=== PATIENT | female | born 1955 | race Caucasian/White ===

== ENCOUNTER 2018-01-28 20:40 | Emergency (ER) | payer BC ==
[~2018-01-28] VITALS: Ht 160 cm; Wt 88.6 kg
[~2018-01-28 20:40] MED LIST: AMOX TR-K CLV1 EAC4 PO; CALCIUM + D3 E1 EACH PO; FUROSEMIDE20 MG PO; HYDROCHLOROTHIA25 MG PO; LETROZOLE2.5 MG PO; LEVOTHYROXINE50 MCG PO; LOVENOX40 MG/0.4 SC; MOTRIN600 MG PO; MOTRIN800 MG PO; NASACORT10.8 ML BOTH NARES; OMEPRAZOLE20 M2 PO; OMEPRAZOLE40 M1 PO; OXYCODONE HCL5 MG PO; PERCOCET 5/31 TABLET PO; PRILOSEC20 MG PO; PROGESTERONE100 MG PO; PROTONIX40 MG PO; PriLOSEC PO; SYNTHROID50 MCG PO; VALTREX50 MG/ML PO; VICODIN 5-3001 EACH PO; Vicodin,Lortab 5/500 PO; ZANTAC150 MG PO; ZOFRAN4 MG PO
[2018-01-28 21:22] LABS: HEMATOCRIT 40.9 % (36.0-46.0); HEMOGLOBIN 14.7 G/DL (11.9-15.5); MCH 30.5 PG (29.0-34.0); MCHC 35.9 G/DL (30.0-36.0); MCV 84.9 FL (83-99); PLATELET COUNT 267 K/uL (156-360); RBC DIS.WIDTH-CV 13.1 % (11.8-14.6); RBC DIS.WIDTH-SD 40.2 % (39-53); RED BLOOD COUNT 4.82 M/uL (3.80-5.20); WHITE BLOOD COUNT 10.7 K/uL (4.1-10.2)
[2018-01-28 21:23] LABS: CARBON DIOXIDE (BICARBONATE) 28.2 MEQ/L (20-31)
[2018-01-28 21:39] LABS: ALBUMIN 4.1 g/dL (3.2-4.8); CHLORIDE 93 mEq/L (99-109); POTASSIUM 3.4 mEq/L (3.7-5.4); SODIUM 131 mEq/L (136-147)
[2018-01-28 21:42] LABS: TOTAL PROTEIN 7.8 g/dL (6.4-8.3)
[2018-01-28 21:44] LABS: TOTAL BILIRUBIN 0.7 mg/dL (0.0-1.0)
[2018-01-28 21:45] LABS: ALKALINE PHOSPHATASE 204 IU/L (3-129); CREATININE 1.3 mg/dL (0.6-1.3); GFR ESTIMATE (CALCULATED) 44 mL/min/
[2018-01-28 21:46] LABS: UREA NITROGEN (BUN) 14 mg/dL (9-23)
[2018-01-28 21:47] LABS: AST (GOT) 30 IU/L (2-34)
[2018-01-28 21:48] LABS: ALT (GPT) 75 IU/L (3-49)
[2018-01-28 22:06] LABS: GLUCOSE 642 mg/dL (70-99)
[2018-01-28 22:07] LABS: APPEARANCE CLEAR ((CLEAR)); BILIRUBIN NEGATIVE; BLOOD NEGATIVE; COLOR STRAW ((YELLOW)); GLUCOSE (STRIP) >=500; KETONES 5; LEUKOCYTES NEGATIVE; NITRITE NEGATIVE; PROTEIN (STRIP) NEGATIVE; UCUL ADDED? NO; UROBILINOGEN 0.2 MG/DL (0.2-1.0)
[2018-01-28 22:13] LABS: CHLORIDE 94 mEq/L (99-109); POTASSIUM 3.7 mEq/L (3.7-5.4); SODIUM 132 mEq/L (136-147)
[2018-01-28 22:19] LABS: CREATININE 1.3 mg/dL (0.6-1.3); GFR ESTIMATE (CALCULATED) 44 mL/min/
[2018-01-28 22:20] LABS: UREA NITROGEN (BUN) 15 mg/dL (9-23)
[2018-01-28 22:27] LABS: GLUCOSE 640 mg/dL (70-99)
[2018-01-29 00:19] VITALS: BP 120/94
== END 2018-01-29 00:19 | disposition home or self-care (01) ==
LOC: EME 20:40
PROVIDERS: Emergency Medicine
DX: R73.9 Hyperglycemia, unspecified (principal); E03.9 Hypothyroidism, unspecified; Z85.3 Personal history of malignant neoplasm of breast; Z88.1 Allergy status to other antibiotic agents
CPT/HCPCS: 80048 91; 80053; 81003; 82010; 82803; 82948; 85027; 99281; 99285; J7030